=== PATIENT | female | born 1960 | race Asian ===

== ENCOUNTER 2020-01-03 18:12 | Inpatient (IN) | payer MEDICARE, MEDICAID ==
[2020-01-04 00:56] VITALS: BP 130/72
[2020-01-04] MEDS ORDERED: Magnesium Hydroxide (MOM) 30 mL UDC PO PRN (06:16)
--- NOTE | 2020-01-04 10:33 | History & Physical ---
ADMIT DATE: 01/04/2020 REASON FOR CONSULTATION: Medical management CHIEF COMPLAINT: Admitted on inpatient unit. HISTORY OF PRESENT ILLNESS: This is a 59-year-old female with history of dementia, hypercholesterolemia, osteoarthritis and vitamin D deficiency, admitted from [facility] secondary to above complaints, under service of Dr. Justin. The patient is awake, just stairs blankly, unable to provide any meaningful history and review of systems, the patient was cleared medically from [place], was also diagnosed UTI, currently on p.o. antibiotic. PAST MEDICAL HISTORY: As mentioned in history of present illness. PAST SURGICAL HISTORY: Unable to obtain from the patient. ALLERGIES: Per chart, no known drug allergies. MEDICATIONS: The patient is on Lamictal, atorvastatin, vitamin D3 and Colace. FAMILY HISTORY: Noncontributory. SOCIAL HISTORY: The patient is a senior living patient. REVIEW OF SYSTEMS: This is limited secondary to being comatose. We will try to obtain more detailed review of systems at a later date by talking to family members, Roc Garibay, the son, number [phone]. There is a sister, Taisha ____. We will also try to get more information from nursing staff at [facility] at [phone]. PHYSICAL EXAMINATION: VITAL SIGNS: Blood pressure 138/84, respiration 18, pulse 94, temperature 97.6. GENERAL: This is an elderly female, chronically ill. NECK: Supple. No mass. LUNGS: Equal breath sounds without rales or rhonchi. HEART: Regular rate and rhythm without appreciable murmur. ABDOMEN: Soft, nontender. EXTREMITIES: No clubbing, cyanosis or edema. NEUROLOGIC: Limited, please refer to Dr. Justin ____. Cranial nerve 1, this was offered, but patient is refused. Cranial nerve 2, this was offered, but patient is refused. Cranial nerve 3, this was offered, but patient is refused. Cranial nerve 4, this was offered, but patient is refused. Cranial nerve 5, this was offered, but patient is refused. Cranial nerve 6, this was offered, but patient is refused. Cranial nerve 7, this was offered, but patient is refused. Cranial nerve 8, this was offered, but patient is refused. Cranial nerve 9, this was offered, but patient is refused. Cranial nerve 10, this was offered, but patient is refused. Cranial nerve 11, this was offered, but patient is refused. Cranial nerve 12, this was offered, but patient is refused. Motor and sensory equal. Gait not seen. LABORATORY DATA: Reviewed. UA showed some WBC and bacteria. Sodium 140, potassium 4.0, BUN 14, creatinine 0.4. WBC was 7 and hemoglobin 13. ASSESSMENT AND PLAN: Urinary tract infection, gait instability, dementia, hypercholesterolemia, osteoarthritis, and vitamin D deficiency. Continue p.o. antibiotic for 5 days. Continue fall precaution. Continue nutritional support. We will continue statin medication. We will continue to follow the patient closely. JOB# [id number]
[2020-01-04] MEDS: Atorvastatin Calcium 10 MG TAB PO SCH (21:21)
--- NOTE | 2020-01-05 03:46 | Psychiatric Evaluation ---
DATE OF SERVICE: 01/04/[address] Justin. HISTORY OF PRESENT ILLNESS: A 59-year-old female brought in here from [facility]. The patient was medically cleared at [facility] and evaluated by Dr. Vidal. She has a history of dementia, osteoarthritis, diagnosed recently with UTI. Today on [id number] evaluation, the patient stutters, derails, incoherent at times, minimally engaging, and extremely poor historian. PAST MEDICAL HISTORY: Hyperlipidemia, osteoarthritis, vitamin D deficiency. PAST PSYCHIATRIC HISTORY: History of dementia. PAST SURGICAL HISTORY: None. ALLERGIES TO MEDICATIONS: NKDA. HOME MEDICATIONS: Include cranberry tablets, Colace, Lamictal, Lipitor, milk of magnesia, Tylenol, vitamin D3. FAMILY PSYCHIATRIC HISTORY: Noncontributory. SOCIAL HISTORY: Living in half-way. MENTAL STATUS EXAMINATION: Derails in conversation, disorganized, limited historian. Unable to assess thought content, thought process. The patient is disorganized, derailing thought process. ASSESSMENT AND PLAN: A 59-year-old female with unknown previous psychiatric hospitalizations, was brought in here with a history of dementia, on Lamictal 25 mg, unclear how much of these disorganized thought processes have been contributing to the recent diagnosis of UTI. No manic symptoms are observed. We will initiate Lamictal at 25 mg to minimize the risk of any mood disregulation while the UTI currently continues to be treated with antibiotics. We will continue to obtain more collateral, baseline information. JOB# [id number]
[2020-01-05] MEDS ORDERED: CHOLECALCIFEROL 3000 UNIT PO SCH (09:00)
--- NOTE | 2020-01-05 19:23 | Internal Medicine Prog Note ---
Internal Medicine Subjective - Subjective Patient seen and examined:: with staff, chart reviewed Patient is:: awake, verbal, interactive, confused Per staff patient has:: no adverse event, no episodes of fall, tolerating meds Internal Medicine Objective - Physical Exam Vitals and I&O: Vital Signs Temp 97.4 F 01/05/20 14:00 Pulse 91 01/05/20 14:00 Resp 20 01/05/20 14:00 BP 135/85 01/05/20 14:00 Pulse Ox 99 01/05/20 14:00 Intake & Output 01/05/20 01/05/20 01/06/20 06:59 18:59 06:59 Intake Total 360 240 Balance 360 240 Intake: Oral 360 240 Other: # Voids 3 3 # Bowel Movements 1 Active Medications: Current Medications Acetaminophen (Tylenol) 650 mg PO Q4H PRN PRN Reason: Pain (Mild 1-3) Stop: 03/04/20 06:14 Acetaminophen (Tylenol) 650 mg PO Q4H PRN PRN Reason: Temperature above 101 Stop: 03/04/20 06:15 Atorvastatin Calcium (Lipitor) 10 mg PO HS [facility]; Protocol Stop: 03/04/20 20:59 Last Admin: 01/04/20 21:21 Dose: 10 mg Cholecalciferol (Vitamin D3) 3,000 iu PO DAILY [facility] Stop: 03/05/20 08:59 Last Admin: 01/05/20 09:45 Dose: 3,000 iu Ciprofloxacin (Cipro) 500 mg PO BID [facility] Stop: 01/13/20 23:55 Last Admin: 01/05/20 17:18 Dose: 500 mg Docusate Sodium (Colace) 100 mg PO BID [facility] Stop: 03/04/20 16:59 Last Admin: 01/05/20 17:19 Dose: 100 mg Donepezil HCl (Aricept) 5 mg PO DAILY [facility] Stop: 03/06/20 08:59 Lamotrigine (Lamictal) 25 mg PO DAILY [facility]; Protocol Stop: 03/05/20 08:59 Last Admin: 01/05/20 09:46 Dose: 25 mg Lorazepam (Ativan) 0.5 mg PO Q4HR PRN; Protocol PRN Reason: agitation/anxiety Stop: 02/03/20 00:57 Magnesium Hydroxide (Milk Of Magnesia) 30 ml PO HS PRN PRN Reason: Constipation Zolpidem Tartrate (Ambien) 5 mg PO HS PRN PRN Reason: Insomnia Stop: 03/04/20 00:57 Last Admin: 01/04/20 21:21 Dose: 5 mg General: demented HEENT: NC/AT, PERRLA Neck: Supple, No JVD Lungs: CTAB Cardiovascular: RRR, Normal S1, Normal S2 Abdomen: soft, thin, positive bowel sound Extremities: excoriation Neurological: no change Internal Medicine Assmt/Plan - Assessment Assessment: ASSESSMENT AND PLAN: Urinary tract infection, gait instability, dementia, hypercholesterolemia, osteoarthritis, and vitamin D deficiency. - Plan Plan: PLAN: Continue p.o. antibiotic for 5 days. Continue fall precaution. Continue nutritional support. We will continue statin medication. We will continue to follow the patient closely.
[2020-01-05] MEDS: Atorvastatin Calcium 10 MG TAB PO SCH (21:19)
--- NOTE | 2020-01-06 02:46 | Progress Notes ---
DATE: 01/05/2020 SUBJECTIVE: Today on face to face evaluation, the patient mostly just stares into the wall. Upon approach, she opened her mouth as she is about to talk, but does not, moderate severe latency. MENTAL STATUS EXAMINATION: Selectively mute, staring, although compliant with medication with a lot of redirection. ASSESSMENT AND PLAN: The patient presents disorganized, taking her antibiotic with the recent diagnosis of urinary tract infection. Per the covering physician, the patient had been on Lamictal from the skilled nursing, which was reinitiated back at 25 mg. I will also augment the current medication regimen with Aricept 5 mg. We will be obtaining more collateral baseline information. JOB# [id number]
--- NOTE | 2020-01-06 13:01 | Internal Medicine Prog Note ---
Internal Medicine Subjective - Subjective Patient seen and examined:: with staff, chart reviewed Patient is:: awake, verbal, interactive, confused Per staff patient has:: no adverse event, no episodes of fall, tolerating meds Internal Medicine Objective - Physical Exam Vitals and I&O: Vital Signs Temp 97.5 F 01/06/20 05:40 Pulse 85 01/06/20 05:40 Resp 18 01/06/20 05:40 BP 119/71 01/06/20 05:40 Pulse Ox 98 01/06/20 05:40 Intake & Output 01/05/20 01/06/20 01/06/20 18:59 06:59 18:59 Intake Total 240 240 Balance 240 240 Intake: Oral 240 240 Other: # Voids 3 1 # Bowel Movements 1 Active Medications: Current Medications Acetaminophen (Tylenol) 650 mg PO Q4H PRN PRN Reason: Pain (Mild 1-3) Stop: 03/04/20 06:14 Acetaminophen (Tylenol) 650 mg PO Q4H PRN PRN Reason: Temperature above 101 Stop: 03/04/20 06:15 Atorvastatin Calcium (Lipitor) 10 mg PO HS [facility]; Protocol Stop: 03/04/20 20:59 Last Admin: 01/05/20 21:19 Dose: 10 mg Cholecalciferol (Vitamin D3) 3,000 iu PO DAILY [facility] Stop: 03/05/20 08:59 Last Admin: 01/06/20 08:24 Dose: 3,000 iu Ciprofloxacin (Cipro) 500 mg PO BID [facility] Stop: 01/13/20 23:55 Last Admin: 01/06/20 08:24 Dose: 500 mg Docusate Sodium (Colace) 100 mg PO BID [facility] Stop: 03/04/20 16:59 Last Admin: 01/06/20 08:24 Dose: 100 mg Donepezil HCl (Aricept) 5 mg PO DAILY [facility] Stop: 03/06/20 08:59 Last Admin: 01/06/20 08:24 Dose: 5 mg Lamotrigine (Lamictal) 25 mg PO DAILY [facility]; Protocol Stop: 03/05/20 08:59 Last Admin: 01/06/20 08:24 Dose: 25 mg Lorazepam (Ativan) 0.5 mg PO Q4HR PRN; Protocol PRN Reason: agitation/anxiety Stop: 02/03/20 00:57 Magnesium Hydroxide (Milk Of Magnesia) 30 ml PO HS PRN PRN Reason: Constipation Zolpidem Tartrate (Ambien) 5 mg PO HS PRN PRN Reason: Insomnia Stop: 03/04/20 00:57 Last Admin: 01/05/20 21:19 Dose: 5 mg General: demented HEENT: NC/AT, PERRLA Neck: Supple, No JVD Lungs: CTAB Cardiovascular: RRR, Normal S1, Normal S2 Abdomen: soft, thin, positive bowel sound Extremities: excoriation Neurological: no change Internal Medicine Assmt/Plan - Assessment Assessment: ASSESSMENT AND PLAN: Urinary tract infection, gait instability, dementia, hypercholesterolemia, osteoarthritis, and vitamin D deficiency. - Plan Plan: PLAN: Continue p.o. antibiotic for 5 days. Continue fall precaution. Continue nutritional support. We will continue statin medication. We will continue to follow the patient closely.
--- NOTE | 2020-01-06 17:54 | Progress Notes ---
DATE: 01/06/2020 Case was discussed with staff of the patient, reviewed records. This is a 59-year-old female sent from [facility], who was admitted on 2019. The patient was cleared by [facility] with a history of dementia, osteoarthritis. The patient has UTI infection. She has also arthritis, vitamin D deficiency, hyperlipidemia. The patient continues to be agitated, internally preoccupied, unable to participate in meaningful conversation or make safe plan for self-care. She is on Aricept 5 mg at bedtime, Lamictal 25 mg daily and no side effects with the medication, no sedation, no nausea, no extrapyramidal symptoms. We will continue outpatient group therapy, milieu therapy, adjust medication as needed. We will try to get more information. JOB# [id number] LORI
[2020-01-06] MEDS: Atorvastatin Calcium 10 MG TAB PO SCH (21:13)
--- NOTE | 2020-01-07 13:08 | Internal Medicine Prog Note ---
Internal Medicine Subjective - Subjective Patient seen and examined:: with staff, chart reviewed Patient is:: awake, verbal, interactive, confused Per staff patient has:: no adverse event, no episodes of fall, tolerating meds Internal Medicine Objective - Physical Exam Vitals and I&O: Vital Signs Temp 98 F 01/07/20 06:34 Pulse 87 01/07/20 06:34 Resp 16 01/07/20 08:00 BP 107/71 01/07/20 06:34 Pulse Ox 99 01/07/20 06:34 Intake & Output 01/06/20 01/07/20 01/07/20 18:59 06:59 18:59 Intake Total 960 240 Balance 960 240 Intake: Oral 960 240 Other: # Voids 4 3 # Bowel Movements 1 0 Active Medications: Current Medications Acetaminophen (Tylenol) 650 mg PO Q4H PRN PRN Reason: Pain (Mild 1-3) Stop: 03/04/20 06:14 Acetaminophen (Tylenol) 650 mg PO Q4H PRN PRN Reason: Temperature above 101 Stop: 03/04/20 06:15 Aripiprazole (Abilify) 5 mg PO DAILY [facility]; Protocol Stop: 03/08/20 08:59 Atorvastatin Calcium (Lipitor) 10 mg PO HS [facility]; Protocol Stop: 03/04/20 20:59 Last Admin: 01/06/20 21:13 Dose: 10 mg Cholecalciferol (Vitamin D3) 3,000 iu PO DAILY [facility] Stop: 03/05/20 08:59 Last Admin: 01/07/20 08:14 Dose: 3,000 iu Ciprofloxacin (Cipro) 500 mg PO BID [facility] Stop: 01/13/20 23:55 Last Admin: 01/07/20 08:14 Dose: 500 mg Docusate Sodium (Colace) 100 mg PO BID [facility] Stop: 03/04/20 16:59 Last Admin: 01/07/20 08:14 Dose: 100 mg Donepezil HCl (Aricept) 5 mg PO DAILY [facility] Stop: 03/06/20 08:59 Last Admin: 01/07/20 08:14 Dose: 5 mg Lamotrigine (Lamictal) 25 mg PO DAILY [facility]; Protocol Stop: 03/05/20 08:59 Last Admin: 01/07/20 08:14 Dose: 25 mg Lorazepam (Ativan) 0.5 mg PO Q4HR PRN; Protocol PRN Reason: agitation/anxiety Stop: 02/03/20 00:57 Magnesium Hydroxide (Milk Of Magnesia) 30 ml PO HS PRN PRN Reason: Constipation Zolpidem Tartrate (Ambien) 5 mg PO HS PRN PRN Reason: Insomnia Stop: 03/04/20 00:57 Last Admin: 01/06/20 21:13 Dose: 5 mg General: demented HEENT: NC/AT, PERRLA Neck: Supple, No JVD Lungs: CTAB Cardiovascular: RRR, Normal S1, Normal S2 Abdomen: soft, thin, positive bowel sound Extremities: excoriation Neurological: no change Internal Medicine Assmt/Plan - Assessment Assessment: ASSESSMENT AND PLAN: Urinary tract infection, gait instability, dementia, hypercholesterolemia, osteoarthritis, and vitamin D deficiency. - Plan Plan: PLAN: Continue p.o. antibiotic for 5 days. Continue fall precaution. Continue nutritional support. We will continue statin medication. We will continue to follow the patient closely.
[2020-01-07] MEDS: Atorvastatin Calcium 10 MG TAB PO SCH (21:13)
--- NOTE | 2020-01-07 23:29 | Progress Notes ---
DATE: 01/07/2020 SUBJECTIVE: Case was discussed with staff of the patient, reviewed records. The patient continues to have poor insight, continues to be confused, unpredictable, impulsive, continues to need redirection. Continues to have poor insight, easily agitated. I will be initiating Abilify on her half a tablet of 5 mg of Abilify daily to help improve her behavior. The patient continues to be intermittently preoccupied, unpredictable, impulsive, and needing redirection. We will continue outpatient group therapy, milieu therapy, and adjust medication as needed. JOB# [id number]
--- NOTE | 2020-01-08 13:23 | Internal Medicine Prog Note ---
Internal Medicine Subjective - Subjective Patient seen and examined:: with staff, chart reviewed Patient is:: awake, verbal, interactive, confused Per staff patient has:: no adverse event, no episodes of fall, tolerating meds Internal Medicine Objective - Physical Exam Vitals and I&O: Vital Signs Temp 0 F 01/08/20 06:46 Pulse 92 01/07/20 22:14 Resp 17 01/08/20 08:00 BP 127/85 01/07/20 22:14 Pulse Ox 97 01/07/20 22:14 Intake & Output 01/07/20 01/08/20 01/08/20 18:59 06:59 18:59 Intake Total 900 120 120 Balance 900 120 120 Intake: Oral 900 120 120 Other: # Voids 3 3 # Bowel Movements 0 0 Active Medications: Current Medications Acetaminophen (Tylenol) 650 mg PO Q4H PRN PRN Reason: Pain (Mild 1-3) Stop: 03/04/20 06:14 Acetaminophen (Tylenol) 650 mg PO Q4H PRN PRN Reason: Temperature above 101 Stop: 03/04/20 06:15 Aripiprazole (Abilify) 5 mg PO DAILY [facility]; Protocol Stop: 03/08/20 08:59 Last Admin: 01/08/20 09:05 Dose: 5 mg Atorvastatin Calcium (Lipitor) 10 mg PO HS [facility]; Protocol Stop: 03/04/20 20:59 Last Admin: 01/07/20 21:13 Dose: 10 mg Cholecalciferol (Vitamin D3) 3,000 iu PO DAILY [facility] Stop: 03/05/20 08:59 Last Admin: 01/08/20 09:05 Dose: 3,000 iu Ciprofloxacin (Cipro) 500 mg PO BID [facility] Stop: 01/13/20 23:55 Last Admin: 01/08/20 09:06 Dose: 500 mg Docusate Sodium (Colace) 100 mg PO BID [facility] Stop: 03/04/20 16:59 Last Admin: 01/08/20 09:06 Dose: 100 mg Donepezil HCl (Aricept) 5 mg PO DAILY [facility] Stop: 03/06/20 08:59 Last Admin: 01/08/20 09:05 Dose: 5 mg Lamotrigine (Lamictal) 25 mg PO DAILY [facility]; Protocol Stop: 03/05/20 08:59 Last Admin: 01/08/20 09:06 Dose: 25 mg Lorazepam (Ativan) 0.5 mg PO Q4HR PRN; Protocol PRN Reason: agitation/anxiety Stop: 02/03/20 00:57 Magnesium Hydroxide (Milk Of Magnesia) 30 ml PO HS PRN PRN Reason: Constipation Multi-Ingredient Cream (Eucerin Cream) 1 appl TP BID [facility] Stop: 03/08/20 16:59 Zolpidem Tartrate (Ambien) 5 mg PO HS PRN PRN Reason: Insomnia Stop: 03/04/20 00:57 Last Admin: 01/07/20 21:14 Dose: 5 mg General: demented HEENT: NC/AT, PERRLA Neck: Supple, No JVD Lungs: CTAB Cardiovascular: RRR, Normal S1, Normal S2 Abdomen: soft, thin, positive bowel sound Extremities: excoriation Neurological: no change Internal Medicine Assmt/Plan - Assessment Assessment: ASSESSMENT AND PLAN: Urinary tract infection, gait instability, dementia, hypercholesterolemia, osteoarthritis, and vitamin D deficiency. - Plan Plan: PLAN: Continue p.o. antibiotic for 5 days. Continue fall precaution. Continue nutritional support. We will continue statin medication. We will continue to follow the patient closely.
[2020-01-08] MEDS: Eucerin Cream 16 oz Jar TP SCH (17:20)
--- NOTE | 2020-01-08 19:06 | Progress Notes ---
DATE: 01/08/2020 Case was discussed with staff of the patient, reviewed records. The patient was initiated on Abilify 2.5 mg daily. The patient continues to be confused, unable to make safe plan for self-care, unpredictable, impulsive, needing redirection. She is sleeping well, eating well. Continues to be rambling. No side effects with the medication, no sedation, no nausea, no extrapyramidal symptoms. We will continue outpatient group therapy, milieu therapy, adjust medication as needed. [facility]# [id number]
[2020-01-08] MEDS: Atorvastatin Calcium 10 MG TAB PO SCH (21:04)
[2020-01-09] MEDS: Eucerin Cream 16 oz Jar TP SCH ×2 (09:15→16:52)
--- NOTE | 2020-01-09 15:30 | Internal Medicine Prog Note ---
Internal Medicine Subjective - Subjective Patient seen and examined:: with staff, chart reviewed Patient is:: awake, verbal, interactive, confused Per staff patient has:: no adverse event, no episodes of fall, tolerating meds Internal Medicine Objective - Physical Exam Vitals and I&O: Vital Signs Temp 97.2 F 01/09/20 06:52 Pulse 96 01/09/20 06:52 Resp 17 01/09/20 08:00 BP 131/84 01/09/20 06:52 Pulse Ox 99 01/09/20 06:52 Intake & Output 01/08/20 01/09/20 01/09/20 18:59 06:59 18:59 Intake Total 1320 120 Balance 1320 120 Intake: Oral 1320 120 Other: # Voids 3 # Bowel Movements 1 Active Medications: Current Medications Acetaminophen (Tylenol) 650 mg PO Q4H PRN PRN Reason: Pain (Mild 1-3) Stop: 03/04/20 06:14 Acetaminophen (Tylenol) 650 mg PO Q4H PRN PRN Reason: Temperature above 101 Stop: 03/04/20 06:15 Aripiprazole (Abilify) 5 mg PO DAILY [facility]; Protocol Stop: 03/08/20 08:59 Last Admin: 01/09/20 09:15 Dose: 5 mg Atorvastatin Calcium (Lipitor) 10 mg PO HS [facility]; Protocol Stop: 03/04/20 20:59 Last Admin: 01/08/20 21:04 Dose: 10 mg Cholecalciferol (Vitamin D3) 3,000 iu PO DAILY [facility] Stop: 03/05/20 08:59 Last Admin: 01/09/20 09:15 Dose: 3,000 iu Ciprofloxacin (Cipro) 500 mg PO BID [facility] Stop: 01/13/20 23:55 Last Admin: 01/09/20 09:14 Dose: 500 mg Docusate Sodium (Colace) 100 mg PO BID [facility] Stop: 03/04/20 16:59 Last Admin: 01/09/20 09:14 Dose: 100 mg Donepezil HCl (Aricept) 5 mg PO DAILY [facility] Stop: 03/06/20 08:59 Last Admin: 01/09/20 09:14 Dose: 5 mg Lamotrigine (Lamictal) 25 mg PO DAILY [facility]; Protocol Stop: 03/05/20 08:59 Last Admin: 01/09/20 09:14 Dose: 25 mg Lorazepam (Ativan) 0.5 mg PO Q4HR PRN; Protocol PRN Reason: agitation/anxiety Stop: 02/03/20 00:57 Magnesium Hydroxide (Milk Of Magnesia) 30 ml PO HS PRN PRN Reason: Constipation Multi-Ingredient Cream (Eucerin Cream) 1 appl TP BID [facility] Stop: 03/08/20 16:59 Last Admin: 01/09/20 09:15 Dose: 1 appl Zolpidem Tartrate (Ambien) 5 mg PO HS PRN PRN Reason: Insomnia Stop: 03/04/20 00:57 Last Admin: 01/08/20 21:08 Dose: 5 mg General: demented HEENT: NC/AT, PERRLA Neck: Supple, No JVD Lungs: CTAB Cardiovascular: RRR, Normal S1, Normal S2 Abdomen: soft, thin, positive bowel sound Extremities: excoriation Neurological: no change Internal Medicine Assmt/Plan - Assessment Assessment: ASSESSMENT AND PLAN: Urinary tract infection, gait instability, dementia, hypercholesterolemia, osteoarthritis, and vitamin D deficiency. - Plan Plan: PLAN: Continue p.o. antibiotic for 5 days. Continue fall precaution. Continue nutritional support. We will continue statin medication. We will continue to follow the patient closely.
--- NOTE | 2020-01-09 19:39 | Progress Notes ---
DATE: 01/09/2020 This is a 59-year-old female brought in from [place], dementia, osteoarthritis, poor historian, was derailing, could not be cared for at a lower level of care, advanced dementia, apparently speaks [place]ian, but per the son lost this ability due to advancing dementia. The patient is rambling, talking nonsense, restless on exam, very confused, unclear how she is going to take care of herself. She probably needs discharge planning, per director social service coming in from [place]. We will continue inpatient monitoring. The patient may be to some extent approaching her baseline. We will monitor for any agitation. JOB# [id number]
[2020-01-09] MEDS: Atorvastatin Calcium 10 MG TAB PO SCH (21:10)
[2020-01-10] MEDS: Eucerin Cream 16 oz Jar TP SCH ×2 (08:35→16:15)
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
[2020-01-10] MEDS: Atorvastatin Calcium 10 MG TAB PO SCH (20:46)
--- NOTE | 2020-01-11 01:36 | Progress Notes ---
DATE: 01/10/2020 SUBJECTIVE: A 59-year-old female with advanced dementia, confused, disoriented, lost the ability to speak Sammarinese, stares blankly, confused, generally calm, concerns about impulse control. Mostly keeps to herself. Fair sleep, needing a higher level of prompting, redirection. Medications were noted. PLAN: We will continue to monitor on the patient. [facility]# [id number]
[2020-01-11] MEDS: Eucerin Cream 16 oz Jar TP SCH ×2 (08:47→16:34)
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
--- NOTE | 2020-01-11 17:45 | Progress Notes ---
DATE: 01/11/2020 SUBJECTIVE: The patient slept for about 4 hours, no outburst, stares blankly, confused, disoriented, just AO to name only, preoccupied with own thoughts, mumbling. Per son, she speaks [place], but not answering when I try to talk to her, resting comfortably. No outbursts. She may be approaching her baseline. Vitals were noted. [facility]# [id number]
[2020-01-11] MEDS: Atorvastatin Calcium 10 MG TAB PO SCH (21:10)
--- NOTE | 2020-01-12 07:50 | Progress Notes ---
DATE: 01/12/2020 SUBJECTIVE: The patient is in the hospital. Awake, alert. Disoriented on exam, easily agitated, withdrawn, ongoing behavioral disturbances. Medications were noted. She mostly keeps to self. Recent dose adjustments of medications including Lamictal, Abilify, and also Aricept. PLAN: We will continue to monitor closely. The patient is with ongoing behavioral disturbances. JOB# [id number]
[2020-01-12] MEDS: Eucerin Cream 16 oz Jar TP SCH ×2 (09:58→17:03)
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
[2020-01-12] MEDS: Atorvastatin Calcium 10 MG TAB PO SCH (20:54)
[2020-01-13] MEDS: Eucerin Cream 16 oz Jar TP SCH ×2 (09:00→16:36)
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
--- NOTE | 2020-01-13 15:12 | Progress Notes ---
DATE: 01/13/2020 Case was discussed with staff of the patient, reviewed records. The patient continues to be unpredictable, impulsive. Confused, continues to be easily agitated. Continues to have poor insight, unable to make safe plan for self-care. No side effects with the medication, no sedation, no nausea, or no extrapyramidal symptoms. I will be increasing her Abilify dose to 10 mg daily. We will continue outpatient group therapy, milieu therapy, adjust medication as needed. JOB# [id number]
[2020-01-13] MEDS: Atorvastatin Calcium 10 MG TAB PO SCH (21:05)
[2020-01-14] MEDS: Eucerin Cream 16 oz Jar TP SCH ×2 (08:56→17:13)
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
[2020-01-14] MEDS: Atorvastatin Calcium 10 MG TAB PO SCH (20:18)
--- NOTE | 2020-01-14 22:43 | Progress Notes ---
DATE: 01/14/2020 SUBJECTIVE: Case was discussed with staff of the patient, reviewed records. The patient continues to be confused, unable to express herself. Continues to redirection. She continues to have poor insight. I did increase Abilify yesterday to 10 mg a day. No side effects, no sedation, no nausea, no extrapyramidal symptoms. We will continue outpatient group therapy, milieu therapy, and adjust medications as needed. JOB# [id number]
[2020-01-15] MEDS: Eucerin Cream 16 oz Jar TP SCH ×2 (09:03→17:23)
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
[2020-01-15] MEDS: Atorvastatin Calcium 10 MG TAB PO SCH (20:48)
--- NOTE | 2020-01-15 22:34 | Progress Notes ---
DATE: 01/15/2020 Case was discussed with staff of the patient, reviewed records. The patient continues to be confused. Continues to have poor insight, unpredictable, impulsive. I did increase Abilify to 10 mg a day. She is demented, confused, unable to make safe plan for self-care, easily agitated. In general, she is starting to show some progress. Sleeping better, eating better. No side effects with the medication, no sedation, no nausea. We will continue outpatient group therapy, milieu therapy, and adjust medication as needed. JOB# [id number]
[2020-01-16] MEDS: Eucerin Cream 16 oz Jar TP SCH ×2 (09:05→16:41)
--- NOTE | 2020-01-16 11:03 | Discharge Summary ---
DATE OF DISCHARGE: 01/16/2020 IDENTIFYING INFORMATION: The patient is a 59-year-old female. HISTORY OF PRESENT ILLNESS: The patient was sent from [place] because of agitation with a history of dementia, recently with UTI infection. The patient is a poor historian, demented, confused, and unable to express herself. I have been seeing her for the past few years at [place]. COURSE IN THE HOSPITAL: The patient after observing for 2 days and we have decided to put her on Abilify to help with agitation. The dose was increased to 10 mg daily. The patient progressively got better. She was less confused. She was sleeping better and eating better. No longer acting in anyway dangerous, so we felt she could be discharged to a lesser level of care. The patient was continued with atorvastatin, Calciferol, Aricept 5 mg at bedtime, Lamictal 25 mg daily that was initiated by Dr. Rothman. The patient is doing better. We felt she could be discharged to a lesser level of care. FINAL DIAGNOSES: Dementia with behavior disturbances. The patient will follow up with the psychiatrist, primary care physician, and therapist at [place]. EXPECTED OUTCOME: Stable, if the patient complies with the above. JOB# [id number]
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
[2020-01-16] MEDS: Atorvastatin Calcium 10 MG TAB PO SCH (21:27)
== END 2020-01-16 20:40 | DRG 884 ==
LOC: GERO 23:34
PROVIDERS: ADMIT Psychiatry & Neurology Psychiatry; ATTEND Psychiatry & Neurology Psychiatry
DX: F03.91 Unspecified dementia, unspecified severity, with behavioral disturbance (principal); N39.0 Urinary tract infection, site not specified; R26.9 Unspecified abnormalities of gait and mobility; E78.00 Pure hypercholesterolemia, unspecified; M19.90 Unspecified osteoarthritis, unspecified site; E55.9 Vitamin D deficiency, unspecified; E78.5 Hyperlipidemia, unspecified
CPT/HCPCS: 83036-90; Z7610